=== PATIENT | male | born 1955 ===

== ENCOUNTER 2020-03-09 14:56 | Emergency (ER) | payer OTHER ==
[2020-03-09 15:23] LABS: CHLORIDE,CL 100 mmol/L (98-107); SODIUM,NA 137 mmol/L (136-145)
--- NOTE | 2020-03-09 16:55 | EDM.PDOC ---
Scribed by Emma Wells 03/09/20 6919 for Alton Vera, [facility] HPI GENERAL MEDICAL PROBLEM - General Chief Complaint: Chest Pain Stated Complaint: INCOMING Time Seen by Provider: 03/09/20 14:54 Source of Information: Reports: Patient, EMS, EMS Notes Reviewed, RN, RN Notes Reviewed History Limitations: Reports: No Limitations - History of Present Illness INITIAL COMMENTS - FREE TEXT/NARRATIVE: A 65-year-old who presents by ambulance for complaint of right wrist, hand and arm pain. Patient reports that it began about 4 hours before ER visit. He states he was driving his Jeep at that time. He has numbness and tingling in his right wrist and hand causing inability to hold dishes. He denied any chest pain, palpitation, stroke, or diabetes. He has never had something like this happen before. He rates his pain as an 8/10. Onset: Today Duration: Constant Location: Reports: Upper Extremity, Right Quality: Reports: Ache Severity: Moderate Improves with: Reports: None Worsens with: Reports: None Associated Symptoms: Reports: No Other Symptoms Right Arm Pain Score (Numeric/FACES): 10 - Related Data Allergies Allergy/AdvReac Type Severity Reaction Status Date / Time No Known Allergies Allergy Verified 03/09/20 15:04 Home Meds: Home Meds Aspirin [Aspirin EC] 81 mg PO DAILY 03/09/20 [History] Pantoprazole Sodium [Protonix] 40 mg PO DAILY 03/09/20 [History] ED ROS GENERAL - Review of Systems Review Of Systems: Comprehensive ROS is negative, except as noted in HPI. ED EXAM, GENERAL - Physical Exam Exam: See Below Exam Limited By: No Limitations General Appearance: Alert, WD/WN, No Apparent Distress Eye Exam: Bilateral Eye: EOMI, Normal Inspection, PERRL Ears: Normal External Exam, Normal Canal, Hearing Grossly Normal, Normal TMs Nose: Normal Inspection, Normal Mucosa, No Blood Throat/Mouth: Normal Inspection, Normal Lips, Normal Teeth, Normal Gums, Normal Oropharynx, Normal Voice, No Airway Compromise Head: Atraumatic, Normocephalic Neck: Normal Inspection, Supple, Non-Tender, Full Range of Motion Respiratory/Chest: No Respiratory Distress, Lungs Clear, Normal Breath Sounds, No Accessory Muscle Use, Chest Non-Tender Cardiovascular: Normal Peripheral Pulses, Regular Rate, Rhythm, No Edema, No Gallop, No JVD, No Murmur, No Rub GI/Abdominal: Normal Bowel Sounds, Soft, Non-Tender, No Organomegaly, No Distention, No Abnormal Bruit, No Mass (Male) Exam: Deferred Rectal (Males) Exam: Deferred Back Exam: Normal Inspection, Full Range of Motion, NT Extremities: Normal Inspection, Normal Range of Motion, Non-Tender, Normal Cap illary Refill, No Pedal Edema Neurological: Alert, Oriented, CN II-XII Intact, Normal Cognition, Normal Gait, Normal Reflexes, No Motor/Sensory Deficits Psychiatric: Normal Affect, Normal Mood Skin Exam: Warm, Dry, Intact, Normal Color, No Rash Course - Vital Signs Last Recorded V/S: Last Vital Signs Temp 97.5 F 03/09/20 14:52 Pulse 94 03/09/20 14:52 Resp 17 03/09/20 14:52 BP 149/90 H 03/09/20 14:52 Pulse Ox 99 03/09/20 14:52 - Orders/Labs/Meds Orders: Active Orders 24 hr Category Date Time Status EKG 12 Lead [EKG Documentation Completion] [RC] URGENT Care 03/09/20 14:59 Ac tive Labs: Laboratory Tests 03/09/20 03/09/20 Range/Units 14:55 14:55 WBC 12.4 H (5.0-10.0) 10^3/uL RBC 5.88 (4.6-6.2) 10^6/uL Hgb 13.3 L (14.0-18.0) g/dL Hct 42.4 (40.0-54.0) % MCV 72.1 L (80-100) fL MCH 22.6 L (27.0-34.0) pg MCHC 31.4 L (33.0-35.0) g/dL Plt Count 328 (150-450) 10^3/uL Neut % (Auto) 73.1 (42.2-75.2) % Lymph % (Auto) 14.0 L (20.5-50.1) % [place] % (Auto) 11.5 H (2-8) % Eos % (Auto) 1.2 (1.0-3.0) % Baso % (Auto) 0.2 (0.0-1.0) % Sodium 137 (136-145) mmol/L Potassium 4.0 (3.5-5.1) mmol/L Chloride 100 (98-107) mmol/L Carbon Dioxide 24 (21-32) mmol/L Anion Gap 17.0 H (7-13) mEq/L BUN 6 L (7-18) mg/dL Creatinine 0.99 (0.70-1.30) mg/dL Est Cr Clr Drug Dosing 77.83 mL/min Estimated GFR (MDRD) > 60 BUN/Creatinine Ratio 6.1 (No establ ref range) Glucose 103 H (74-99) mg/dL Calcium 8.7 (8.5-10.1) mg/dL Total Bilirubin 0.4 (0.2-1.0) mg/dL AST 37 (15-37) U/L ALT 55 (16-63) U/L Alkaline Phosphatase 95 (46-116) U/L Troponin I < 0.017 (0.000-0.056) ng/mL Total Protein 7.7 (6.4-8.2) g/dL Albumin 3.8 (3.4-5.0) g/dL Globulin 3.9 Albumin/Globulin Ratio 1.0 - Re-Assessments/Exams Free Text/Narrative Re-Assessment/Exam: Reviewed exam and lab findings with the patient. Patient admits to a history of iron deficiency anemia, but has not taken iron pills for many years. Numbness and tingling in the right wrist and forearm has improved with no treatment. Encouraged the patient to follow up with PCP in the clinic for neurology referral for EMG testing. Patient verbalized understanding. Departure - Departure Time of Disposition: 16:16 Disposition: Home, Self-Care 01 Condition: Good Clinical Impression: Numbness of right hand, Hand pain, right Instructions: Hand Pain Forms: ED Department Discharge Additional Instructions: Encouraged the patient to follow up with PCP in the clinic for neurology referral for EMG testing. Sepsis Event Note (ED) - Focused Exam Vital Signs: Vital Signs Temp Pulse Resp BP Pulse Ox 03/09/20 14:52 97.5 F 94 17 149/90 H 99 - My Orders Last 24 Hours: My Active Orders 03/09/20 14:59 EKG 12 Lead [EKG Documentation Completion] [RC] URGENT - Assessment/Plan Last 24 Hours: My Active Orders 03/09/20 14:59 EKG 12 Lead [EKG Documentation Completion] [RC] URGENT I have read and agree with the documentation that has been completed regarding this visit. By signing this record, I attest that the documentation was completed in my physical presence and is an accurate record of the encounter.
== END 2020-03-09 16:35 | disposition home or self-care (01) ==
LOC: DL.ED 14:56
DX: M79.641 Pain in right hand (principal); R20.0 Anesthesia of skin; Z79.82 Long term (current) use of aspirin; Z79.899 Other long term (current) drug therapy
CPT/HCPCS: 36415; 80053; 84484; 85025; 93005; 99283; 99284-25